=== PATIENT | female | born 2000 | race Caucasian/White ===

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

== ENCOUNTER 2020-08-11 09:00 | Outpatient (RCR) | payer OTHER, SELFPAY ==
--- NOTE | 2020-07-28 15:45 | HP.PTEVAL ---
Patient's Visit Information ROXIE MARIO is a 19 year old F referred to Physical Therapy by Dr. Carroll Kim DO with a diagnosis of TANVI THORACIC OUTLET SYNDROME. Date of Evaluation: 07/28/20 Physical Therapist: Nohemy Montgomery PT, Cert MDT - Visit Plan Frequency: 2-3x /Week Duration: 4-6 Weeks Plan: CERVICAL AND SHLD REGION US, CONSIDER MANUAL TX AND MECHANICAL TRACTION IF RESPONDING WELL TO MANUAL. POSTURE CORRECTION/STRENGTHENING, INSTRUCTION IN APPROPRIATE BODY MECHANICS AND ACTIVITY MODIFICATIONS. TANVI UE ROM, STRETCHING AND STRENGTHENING. HEP INSTRUCTION. THER EX SUGGESTIONS TOLERATED: REP RET IN SITTING. REP RET IN LYING. SCAP SQUEEZES. DEEP NECK FLEXOR LIFT. PRONE W'S. UE WALL SLIDES. PRONE ROWS. UE TBAND WALL WALKS. ANTERIOR/MIDDLE SCALENE STRETCH. UPPER TRAP STRETCH. LEVATOR SCAPULAE STRETCH. CHEST/PEC MAJOR AND MINOR STRETCH - Subjective Diagnosis: TANVI THORACIC OUTLET SYNDROME. Work/Leisure: [employer] IN [employer]. 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 Present symptoms: R > L SHOULDER, CHEST AND UPPER ARM PAIN. AT NIGHT GETS CRAMPS IN NECK BUT NO NECK PAIN DURING THE DAY. Present since: 4-5 MONTHS AGO. Pain Scale: Worst - 7/10 Least - /10. Currently: 07/30. Commenced as a result of: NO APPARENT REASON. STARTED HURTING MORE AND MORE AT PRACTICES. LIFTING AND PRACTICING VBALL AT THE TIME BUT DID NOT HAVE A SEASON. Symptoms at onset: SHARP RIGHT SHLD PAIN. RIGHT HANDED. Worse: OPENING A FRIG, CARRYING ANYTHING UP OR AWAY FROM BODY, SITTING WITH ARM BENT TOO LONG, TRYING TO SLEEP WITH ARM ABOVE HEAD. Better: LETTING ARM RELAX DOWN AT SIDE, HEAT, WARM SHOWER. Disturbed sleep: YES. Previous history/Previous treatment: UNREMARKABLE. This episode: DX'D WITH BICEP TENDONITS AT [employer] AND DID EX'S FOR THAT FOR ABOUT [address] KIM IN JUNE. WAS PRESCRIBED ANTI-INFLAMMATORY THAT SEEMED TO HELP IN THE BEGINNING BUT STOPPED HELPING. NO LONGER TAKING IT. WAS ALSO GIVEN HOME ROTATOR CUFF TYPE EX'S. FOLLOW UP WITH DR. KIM AGAIN 2 DAYS AGO BECAUSE NOT GETTING BETTER AND WAS DX'S WITH THORACIC OUTLET SYNDROME. VASCULAR CONSULT PENDING AT [facility] NEXT FRIDAY AND CHEST CT SCAN PENDING. Dizziness: NO. Tinnitis: NO. Nausea: NO. Shortness of Breath: NO. Difficulty Swollowing: NO. Gait: NORMAL. Accidents: NO. Unexplained weight loss: NO. Imaging: VASCULAR US OF R UE LEADING TO THORACIC OUTLET DX. NO RECENT CERVICAL X-RAYS. PMH/Recent major surgery: CARDIAC ABLATION. ORIF SCAPHOIDS TANVI FROM VBALL INJURIES. - Objective Sitting Posture/Standing Posture: POOR. FH. RS'S. Active Correction of posture: WORSE. Other Observations: INDEP GAIT AND TRANSFERS. Motor deficit: TANVI UE'S 5/5. Sensory deficit: TANVI UE LIGHT TOUCH SENSATION INTACT AND SYMMETRICAL. ROM deficit: TANVI UE'S WFL. Reflexes: TANVI UE'S 2/3. Dural Signs: POSITIVE TANVI UE'S. Cervical Mvmt Loss: Flex: NIL. Pro: NIL - PULLS IN RIGHT SHLD. Ext: NIL. Ret: MIN. RSB: NIL. LSB: MIN - PULLS IN RIGHT NECK AND SHLD. R Rot: NIL. L Rot: MIN - PULLS IN R NECK AND SHLD. Postural strength: POOR. Palpation: NO ACUTE TENDERNESS IN CERVICAL OR UPPER THORACIC SPINE. TENDERNESS IN TANVI CERVICAL MUSCULATURE AND UPPER TRAPS RIGHT > LEFT. INCREASED MUSCLE TONE TANVI CERVICAL MUSCULATURE AND MULTIPLE TRIGGER POINTS. OTHER: SEATED CERVICAL DISTRACTION TESTING RESULTS IN SOME RELIEF OF UE SX'S. TREATMENT: NEUROMUSCULAR REEDUCATION - RETRAINING OF MVMT AND POSTURE FOR SITTING, LYING AND STANDING ACTIVITIES. - Goals Goal 1:: DECREASE C/O NECK AND TANVI UE SX'S Goal Time Frame: 4-6 Weeks Goal 2:: IMPROVE LIFTING, REACHING, PUSHING, PULLING, ADL, SLEEP AND SPORT FUNCTION Goal Time Frame: 4-6 Weeks Goal 3:: PATIENT WILL BE INDEP WITH A HEP FOR CONTINUED IMPROVEMENT ONCE FORMAL PHYSICAL THERAPY CONCLUDES. Goal Time Frame: 4-6 Weeks - Anticipated Interventions Patient/Client Instruction: Educate patient on: Condition, Plan of Care, Risk Factors, Benefits of Fitness Program For the Purpose of:: To improve self management Therapeutic Exercise to Include: Strength training, Body mechanics, Postural training, Flexibilty training, Neuromotor development, Scapular Strength/Stabilization For the Purpose of:: To decrease pain, To improve muscle performance and motor function, To increase tolerance to activity/condition/position, To improve ability of physical actions for home/community/work/leisure Cryotherapy (ice pack, ice massage): Yes Thermo therapy (hot pack): Yes Ultrasound (thermal/non thermal): Yes For the Purpose of:: To decrease pain, To decrease swelling/inflammation, To improve nutrient delivery to tissue Thank you for the opportunity to evaluate your patient. For Medicare and Medicare HMO plans, please review the plan of care and approve it. It will need to be FAXED BACK to us at [phone] for Medicare purposes. For Medicare only, by signing this I certify the plan of care. Please let me know if there are questions or concerns regarding this plan of care. Physician Signature: Date:
--- NOTE | 2020-08-11 11:25 | HP.PTDCSUM ---
It has been my pleasure to treat ROXIE MARIO referred by Dr. Carroll Lee DO, with the diagnosis of TANVI THORACIC OUTLET SYNDROME for a total of 6 visit(s). Discharge Date: 08/11/20 Please see the following information for a summary of their discharge status. Subjective: PATIENT REPORTS SHE REALLY HASN'T HAD ANY BIG ISSUES SINCE LAST VISIT. SLEEPING BETTER. HAS TO SLEEP ON BACK OR STOMACH THOUGH. FEELING IT MORE IN NECK THAN SHOULDERS NOW. PATIENT REPORTS HER HEP IS GOING GOOD. RIGHT SHOULDER Pain Intensity (Out of 10): 1 NECK Pain Intensity (Out of 10): 2 L SHLD Pain Intensity (Out of 10): 0 % Improvement: 20 Objective/Function: PATIENT IS RESPONDING WELL TO REST, MODALITIES AND LIGHT EXERCISE. TOLERATING EX'S NOW THAT SHE WAS NOT ABLE TO PRIOR TO THIS EPISODE OF CARE WITH PT. QUICK DASH SCORE HAS IMPROVED FROM 29.54 TO 9.09. PATIENT IS GOING TO CONTINUE PT AT SCHOOL AT THIS POINT. Goal 1:: DECREASE C/O NECK AND TANVI UE SX'S Goal Progress: Progressing Goal 2:: IMPROVE LIFTING, REACHING, PUSHING, PULLING, ADL, SLEEP AND SPORT FUNCTION Goal Progress: Progressing Goal 3:: PATIENT WILL BE INDEP WITH A HEP FOR CONTINUED IMPROVEMENT ONCE FORMAL PHYSICAL THERAPY CONCLUDES. Goal Progress: Progressing Plan: D/C If there are questions or concerns regarding this patient's physical therapy, please feel free to call me at [phone]. Thank you for the referral of this patient. Sincerely, Nohemy Montgomery, PT, Cert MDT
== END 2020-08-11 19:00 | disposition home or self-care (01) ==
LOC: PT 09:00
PROVIDERS: PCP Pediatrics; Referring Provider Family Medicine; Visit Provider Family Medicine
DX: G54.0 Brachial plexus disorders (principal)
CPT/HCPCS: 97014; 97035; 97112; 97162; 97530; G0283